=== PATIENT | female | born 1935 | race Caucasian/White ===

== ENCOUNTER 2021-07-17 12:08 | Emergency (ER) | payer OTHER ==
[~2021-07-17] VITALS: Ht 154.9 cm; Wt 75.3 kg
[2021-07-17 13:26] VITALS: BP 160/78
[2021-07-17] MEDS ORDERED: MELO7.5T9 PO (14:58)
[2021-07-17] MEDS ORDERED: ACETAMINOPHEN 500 MG TAB PO ONE (15:00)
== END 2021-07-17 15:04 | disposition home or self-care (01) ==
LOC: ER 12:08
DX: M51.36 Other intervertebral disc degeneration, lumbar region (principal); M47.816 Spondylosis without myelopathy or radiculopathy, lumbar region; M17.12 Unilateral primary osteoarthritis, left knee; I10 Essential (primary) hypertension; E78.5 Hyperlipidemia, unspecified; Z86.73 Personal history of transient ischemic attack (TIA), and cerebral infarction without residual deficits; Z90.710 Acquired absence of both cervix and uterus
CPT/HCPCS: 72131; 73562

== ENCOUNTER → 2021-09-09 | Outpatient (CLI) | payer OTHER ==
[~2021-09-09] MED LIST: MELO7.5T9 PO
== END | disposition home or self-care (01) ==
LOC: Rad HDHVI 14:56
PROVIDERS: ATTEND Internal Medicine Cardiovascular Disease
DX: I35.8 Other nonrheumatic aortic valve disorders (principal); R07.89 Other chest pain
CPT/HCPCS: 93306

== ENCOUNTER → 2021-09-17 | Outpatient (CLI) | payer OTHER ==
[~2021-09-17] VITALS: Ht 154.9 cm; Wt 77.6 kg
[~2021-09-17] MED LIST changes: +ADENOSINE 65 MG in GIVE UN-DILUTED 0 ML IV ONE; +ADENOSINE 90 MG/30 ML INJ IV ONE
== END | disposition home or self-care (01) ==
LOC: Rad HDHVI 12:59
PROVIDERS: ATTEND Internal Medicine Cardiovascular Disease
DX: I10 Essential (primary) hypertension (principal); E78.5 Hyperlipidemia, unspecified
CPT/HCPCS: 78452; 93005; 96374; 96375; A9500; J0153

== ENCOUNTER → 2022-01-25 | Outpatient (CLI) | payer OTHER ==
[~2022-01-25] MED LIST changes: -ADENOSINE 65 MG in GIVE UN-DILUTED 0 ML IV ONE; -ADENOSINE 90 MG/30 ML INJ IV ONE
[2022-01-25 16:16] LABS: Basophils # (auto) 0.1 10 ^3/uL (0-0.2); Basophils % (auto) 1.7 % (0.0-2.0); Eosinophils # (auto) 0.3 10 ^3/uL (0-0.8); Eosinophils % (auto) 5.2 % (0.0-7.0); Hematocrit 41.7 % (36.0-46.0); Hemoglobin 13.9 g/dL (12.2-16.2); Lymphocytes # (auto) 1.4 10 ^3/uL (0.4-5.4); Lymphocytes % (auto) 27.3 % (10.0-50.0); Mean Corpuscular Hemoglobin 31.4 pg (28.0-32.0); Mean Corpuscular Hgb Conc. 33.4 g/dL (32.0-36.0); Mean Corpuscular Volume 94.1 fL (80.0-100.0); Monocytes # (auto) 0.6 10 ^3/uL (0-1.3); Monocytes % (auto) 11.1 % (0.0-12.0); Neutrophils # (auto) 2.8 10 ^3/uL (1.6-8.6); Neutrophils % (auto) 54.7 % (37.0-80.0); Nucleated Red Blood Cells % 0.2 %; Red Blood Cells 4.44 10^6/uL (4.0-5.20); Red Cell Distribution Width 13.7 % (11.8-14.3); White Blood Cell 5.2 10^3/uL (4.4-10.8)
[2022-01-25 16:28] LABS: Albumin 4.1 g/dL (3.4-5.0); Calcium 9.2 mg/dL (8.5-10.1); Potassium 4.9 mmol/L (3.5-5.1)
[2022-01-25 16:32] LABS: BUN/Creatinine Ratio 17.8; Bilirubin, Total 0.6 mg/dL (0.2-1.0); Total Protein 6.9 g/dL (6.4-8.2); Urine Blood Negative /uL (Negative); Urine Specific Gravity 1.013 (1.001-1.035)
[2022-01-25 17:02] LABS: Free T4 (Free Thyroxine) 1.11 ng/dL (0.89-1.76)
== END | disposition home or self-care (01) ==
LOC: LAB 11:40
PROVIDERS: ATTEND Internal Medicine Cardiovascular Disease
DX: I10 Essential (primary) hypertension (principal)
CPT/HCPCS: 36415; 80053; 80061; 81003; 82607; 83036; 84439; 84443; 85025

== ENCOUNTER → 2022-09-06 | Outpatient (CLI) | payer OTHER ==
[~2022-09-06] VITALS: Ht 154.9 cm; Wt 76.7 kg
[~2022-09-06] MED LIST changes: +ADENOSINE 64 MG in GIVE UN-DILUTED 0 ML IV ONE; +ADENOSINE 90 MG/30 ML INJ IV ONE; +AMLO1TAB22 PO; +ATOR40TA52 PO; +HYDR12.55 PO; +LEV50T PO; +LEVO50TA7 PO; +NAP500T PO; +PREG-109 PO; +TEMA15CA PO; +TEMA15CA2 PO
== END | disposition home or self-care (01) ==
LOC: Rad HDHVI 09:20
PROVIDERS: ATTEND Internal Medicine Cardiovascular Disease
DX: I11.0 Hypertensive heart disease with heart failure (principal); I50.33 Acute on chronic diastolic (congestive) heart failure; E78.00 Pure hypercholesterolemia, unspecified
CPT/HCPCS: 78452; 93005; 96374; 96375; A9500; J0153

== ENCOUNTER → 2022-09-08 | Outpatient (CLI) | payer OTHER ==
[~2022-09-08] MED LIST changes: -ADENOSINE 64 MG in GIVE UN-DILUTED 0 ML IV ONE; -ADENOSINE 90 MG/30 ML INJ IV ONE
== END | disposition home or self-care (01) ==
LOC: Rad HDHVI 15:49
PROVIDERS: ATTEND Internal Medicine Cardiovascular Disease
DX: I10 Essential (primary) hypertension (principal)
CPT/HCPCS: 93880

== ENCOUNTER → 2023-06-06 | Outpatient (CLI) | payer OTHER ==
[~2023-06-06] MED LIST changes: -PREG-109 PO; +PREG75CA90 PO
== END | disposition home or self-care (01) ==
LOC: Rad HDHVI 11:29
PROVIDERS: ATTEND Internal Medicine Cardiovascular Disease
DX: M51.37 Other intervertebral disc degeneration, lumbosacral region (principal); M47.817 Spondylosis without myelopathy or radiculopathy, lumbosacral region; M48.061 Spinal stenosis, lumbar region without neurogenic claudication
CPT/HCPCS: 72131

== ENCOUNTER → 2023-09-28 | Outpatient (CLI) | payer OTHER ==
[~2023-09-28] MED LIST changes: -LEV50T PO; +LEVO-848 PO
== END | disposition home or self-care (01) ==
LOC: Rad HDHVI 13:23
PROVIDERS: ATTEND Internal Medicine Cardiovascular Disease
DX: I10 Essential (primary) hypertension (principal)
CPT/HCPCS: 93880

== ENCOUNTER → 2023-10-10 | Outpatient (CLI) | payer OTHER | END | disposition home or self-care (01) | LOC: Rad HDHVI 13:58 | PROVIDERS: ATTEND Internal Medicine Cardiovascular Disease | DX: I08.3 Combined rheumatic disorders of mitral, aortic and tricuspid valves (principal); I25.2 Old myocardial infarction; I50.9 Heart failure, unspecified | CPT/HCPCS: 93306 ==

== ENCOUNTER → 2024-04-11 | Outpatient (CLI) | payer OTHER ==
[~2024-04-11] MED LIST changes: +READI-CAT 2 (BARIUM SULF)(VANILLA SMOOTHIE) 450ML ONE
--- NOTE | 2024-04-11 15:58 | DVH ---
CT CT AB PEL WITH ORAL CON ONLY INDICATION: ABD PAIN EXAM DATE: 04/11/2024 12:43 PM COMPARISON: None RADIATION DOSE: CTDIvol: 6.63 mGy, DLP: 334.47 mGy*cm PROCEDURE: Helical CT images were obtained of the abdomen and pelvis without IV contrast Sagittal and coronal reconstructions are provided. ORAL CONTRAST: Yes ADDITIONAL IMAGES / REFORMATS: None All CT scans at this medical facility are performed using dose modulation techniques as appropriate to a per formed exam including the following: Automated exposure control was utilized; adjustment of the MA an d/or KV according to patient size; and use of iterative reconstruction technique. FINDINGS: LUNG BASE: Normal. 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 Additional 1.1 cm low density liver cystic lesion adjacent to the gallbladder is incompletely characterized wit hout IV contrast. GALLBLADDER AND BILIARY TREE: No calcified gallstones. Normal caliber wall. No intra- or extrahepatic biliary ductal dilation. PANCREAS: Normal. SPLEEN: Normal. BOWEL: Moderate colonic diverticulosis. Oral contrast material seen in nondilated small kandace. ADRENALS: Normal. KIDNEYS AND URETER: Small subcentimeter left kidney cystic lesion. Mild bilateral perinephric fat str anding, nonspecific. BLADDER: Normal. REPRODUCTIVE ORGANS: Normal. LYMPH NODES:No lymphadenopathy. PERITONEUM: No ascites or free air. No other fluid collection. VESSELS: Scattered atherosclerotic calcifications are noted. RETROPERITONEUM: Normal. ABDOMINAL WALL: Normal. BONES: Scattered osseous degenerative changes are noted. IMPRESSION: No acute intraabdominal abnormality. No small bowel dilation. 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 Additional 1.1 cm low density liver cystic lesion adjacent to the gallbladder is incompletely characterized without IV contrast. Moderate colonic diverticulosis.
== END | disposition home or self-care (01) ==
LOC: Rad HDHVI 11:41
PROVIDERS: ATTEND Internal Medicine Cardiovascular Disease
DX: K57.30 Diverticulosis of large intestine without perforation or abscess without bleeding (principal); N28.1 Cyst of kidney, acquired; K76.9 Liver disease, unspecified; I70.8 Atherosclerosis of other arteries; M47.816 Spondylosis without myelopathy or radiculopathy, lumbar region; R10.9 Unspecified abdominal pain
CPT/HCPCS: 74176

== ENCOUNTER → 2024-08-15 | Outpatient (CLI) | payer OTHER ==
[~2024-08-15] MED LIST changes: -READI-CAT 2 (BARIUM SULF)(VANILLA SMOOTHIE) 450ML ONE
== END | disposition home or self-care (01) ==
LOC: Rad HDHVI 16:34
PROVIDERS: ATTEND Internal Medicine Cardiovascular Disease
DX: R42 Dizziness and giddiness (principal)
CPT/HCPCS: 93880

== ENCOUNTER 2024-11-17 14:50 | Emergency (ER) | payer OTHER ==
[~2024-11-17] VITALS: Ht 154.9 cm; Wt 68.2 kg
[2024-11-17] MEDS: HYDROcodone-ACET 5/325MG TAB PO ONE (16:45)
--- NOTE | 2024-11-17 17:19 | DVH ---
CLINICAL INDICATION: Trauma/twist TECHNIQUE: 3 radiographic views of the left foot were obtained. Comparison: None FINDINGS/IMPRESSION: Medial osteotomy distal aspect 1st metatarsal with [address] No prior studies for comparison. Arthritic changes are noted of the tarsal metatarsal joint of the 2nd 3rd 4th and 5th toes.
--- NOTE | 2024-11-17 17:20 | DVH ---
CLINICAL INDICATION: Trauma/twist TECHNIQUE: 4 radiographic views of the left ankle were obtained. Comparison: None FINDINGS/IMPRESSION: Soft tissue swelling is noted around the left ankle. Not appear to be any fractures of the distal tibia or fibula. Small plantar calcaneal enthesophyte is seen.
[2024-11-17] MEDS ORDERED: HYDR-4902 PO (17:38)
--- NOTE | 2024-11-17 17:39 | ED.PDOC ---
Musculoskeletal HPI Comments This is a [facility] ED 9-year-old female who arrives to the ED today with a walker due to complaints of left ankle and left foot pain concerns status post ground level fall two days ago. Patient states she was working in her backyard and walking over some j[employer]inta establishment when she twisted her ankle and fell. Patient is utilizing a walker, but can not bear some weight on the ankle and foot. Patient has a history of pin placement in the foot due to a prior injury. Patient denies any head trauma or blood loss. Chief Complaint: Fall Injury Time Seen by MD: 16:02 Primary Care Provider: MIKE Reviewed Notes: Nurses Notes Allergies: Coded Allergies: Sulfa Antibiotics (Verified Allergy, Unknown, 08/30/22) Home Meds Active Scripts Meloxicam (Mobic) 7.5 Mg Tab, 7.5 MG PO BID, #30 TAB Prov:DESIREE PICKETT 07/17/21 Reported Medications Naproxen (NAPROSYN TABLET) 500 Mg Tb, 1 TAB PO BID 08/31/22 Atorvastatin Calcium (ATORVASTATIN CALCIUM) 40 Mg Tab, 1 TAB PO DAILY 08/31/22 Temazepam (Restoril) 15 Mg Cp, 1 CAP PO QHSP PRN for ANXIETY 08/31/22 Levothyroxine Sodium (Levothyroxine Sodium) 50 Mcg Tab, 1 TAB PO DAILY 08/31/22 Pregabalin (Pregabalin) 75 Mg Cap, 1 CAP PO BID 08/31/22 Hydrochlorothiazide (Hydrochlorothiazide) 12.5 Mg Tab, 1 TAB PO DAILY 08/31/22 Amlodipine Besylate (Amlodipine Besylate) 5 Mg Tab, 1 TAB PO DAILY 08/31/22 Temazepam (Temazepam) 15 Mg Cap, 1 CAP PO QHSP PRN for ANXIETY 08/31/22 Levothyroxine Sodium (SYNTHROID TABLET) 50 Mcg Tb, 1 TAB PO DAILY 08/31/22 Information Source: Patient, Spouse Mode of Arrival: Ambulatory Location: Left Extremity Location: Ankle, Foot Timing: Days Prehospital treatment: None Severity: Moderate Able to Move Extremity: Yes Bear Weight: Limited Pain: Moderate Hand Dominance: Right Mechanism: Twisting Circumstances: Fall Onset of Symptoms: After Trauma Symptoms: Swelling, Pain DVT Risk Factors: NONE Past Medical History PAST MEDICAL HISTORY: Arthritis, High Lipids, HTN, TIA Surgical History: Hysterectomy Surgical History (Other): Pin placement in the metatarsals of the left foot PROBATE PARALEGAL History: No Pertinent PROBATE PARALEGAL History Family History Family History: Reviewed,noncontributory to illness Social History Smoker: Non-Smoker Alcohol: Denies ETOH Use Drugs: Denies Drug Use Lives In: Home Constitutional: denies: chills, diaphoresis, fatigue, fever, malaise, sweats, weakness, others EENTM: denies: blurred vision, double vision, ear bleeding, ear discharge, ear drainage, ear pain, ear ringing, eye pain, eye redness, hearing loss, mouth pain, mouth swelling, nasal discharge, nose bleeding, nose congestion, nose pain, photophobia, tearing, throat pain, throat swelling, voice changes, others Respiratory: denies: cough, hemoptysis, orthopnea, SOB at rest, shortness of breath, SOB with excertion, stridor, wheezing, others Cardiovascular: denies: chest pain, dizzy spells, diaphoresis, Dyspnea on exertion, edema, irregular heart beat, left arm pain, lightheadedness, palpitations, PND, syncope, others Gastrointestinal: denies: abdomen distended, abdominal pain, blood streaked bowels, constipated, diarrhea, dysphagia, difficulty swallowing, hematemesis, melena, nausea, poor appetite, poor fluid intake, rectal bleeding, rectal pain, vomiting, others Genitourinary: denies: abnormal vagina bleeding, burning, dyspareunia, dysuria, flank pain, frequency, hematuria, incontinence, pain, , vagina discharge, urgency, others Neurological: denies: dizziness, fainting, headache, left sided numbness, left sided weakness, numbness, paresthesia, pre-existing deficit, right sided numbness, right sided weakness, seizure, speech problems, tingling, tremors, weakness, others Musculoskeletal: reports: others (Left foot and left ankle pain); denies: back pain, gout, joint pain, joint swelling, muscle pain, muscle stiffness, neck pain Integumetry: denies: bruises, change in color, change in hair/nails, dryness, laceration, lesions, lumps, rash, wounds, others Allergic/Immunocompromised: denies: Difficulty Healing, Frequent Infections, Hives, Itching, others Hematologic/Lymphatic: denies: anemia, blood clots, easy bleeding, easy bruising, swollen glands, others Endocrine: denies: excessive hunger, excessive sweating, excessive thirst, excessive urination, flushing, intolerance to cold, intolerance to heat, unexplained weight gain, unexplained weight loss, others Psychiatric: denies: anxiety, bipolar disorder, depression, hopeless, panic disorder, schizophrenia, sleepless, suicidal, others Physical Exam General Appearance: Moderate Distress (Due to foot and ankle pain concerns.), Normal HEENT: Normal ENT Inspection, Pharynx Normal, TMs Normal Neck: Full Range of Motion, Non-Tender, Normal, Normal Inspection Respiratory: Chest Non-Tender, Lungs Clear, No Accessory Muscle Use, No Respiratory Distress, Normal Breath Sounds Cardiovascular: No Edema, No JVD, No Murmur, No Gallop, Normal Peripheral Pulses, Regular Rate/Rhythm Breast Exam: Deferred Gastrointestinal: No Organomegaly, Non Tender, No Pulsatile Mass, Normal Bowel Sounds, Soft Genitalia: Deferred Pelvic: Deferred Rectal: Deferred Extremities: Other (Left ankle and left foot are diffusely tender to palpation throughout with mild edema extending into the dorsal aspect of the foot and lateral malleolus. Moderate reduced range of motion. No crepitus appreciated.) Neurologic: Alert Cerebellar Function: NOT DONE Reflexes: NOT DONE Skin: Dry, Normal Color, Warm Lymphatic: No Adenopathy Was a procedure done? Was a procedure done?: No Differential Diagnosis EXT Differential Diagnosis: Other (Ankle fracture, ankle sprain, foot fracture, foot sprain) X-Ray, Labs, Meds, VS Vital Signs Date Time Temp Pulse Resp B/P (MAP) Pulse Ox O2 Delivery O2 Flow Rate FiO2 11/17/24 14:52 97.4 85 18 169/67 95 97.4 Current Medications Medications (Trade) Dose Ordered Sig/Zuleima Route Start Time Stop Time Status Last Admin Acetaminophen/ Hydrocodone Bitart ([place] 5/325MG Tab) 1 tab ONCE ONCE PO 11/17/24 16:15 11/17/24 16:16 DC 11/17/24 16:45 X-Ray, Labs, Meds, VS Comment All studies performed the ED were evaluated by me personally. Imaging studies of the ankle and foot were unremarkable for any acute fractures. Pin placement was noted without disturbance. Patient sustained a sprain and contusion. Doug wrap was provided for the patient at discharge. Advised pain medication as needed as well as ice therapy. Time of 1ST Reevaluation: 17:36 Reevaluation 1ST: Improved Consultation: PCP Patient Education/Counseling: Diagnosis, Treatment Family Education/Counseling: Diagnosis, Treatment Sepsis Recent Procedure: No On Antibiotic Therapy: No Respiratory Rate >20: No Heart Rate >90: No Temp<36 C (96.8 F) or >38.3 C: No SBP <90 or MAP <65 mmHG: No New Acute Mental Status Change: No Is the patient on CPAP, BIPAP,: No IV fluid given: No Departure 1 Departure Time of Disposition: 17:37 Impression: Primary Impression: Ankle sprain Additional Impression: Foot contusion Disposition: HOME / SELF CARE / HOMELESS Condition: Stable Additional Instructions: Advised pain medication as needed as well as ice therapy. Patient should utilize her walker as long as it aid in the healing process. e-Prescriptions Hydrocodone-Acetaminophen (Hydrocodone Bitartrate/AC 5-325 mg) 1 Tab Tab 1 TAB PO Q6HP PRN, #15 TAB Prov: JAQUELINE MILES PAC 11/17/24 Discharged With: Self, Spouse Critical Care Note Critical Care Time?: No Stability Stability form required: No Heart Score Heart Score: Heart Score Response (Comments) Value History N/A 0 EKG N/A 0 Age N/A 0 Risk Factors N/A 0 Troponin N/A 0 Total 0 JAQUELINE MILES PAC Nov 17, 2024 17:39
[2024-11-17 18:02] VITALS: BP 138/99; PULSE 71; RESP 18; TEMP 98; O2SAT 98
== END 2024-11-17 18:09 | disposition home or self-care (01) ==
LOC: ER 14:53
DX: S93.409A Sprain of unspecified ligament of unspecified ankle, initial encounter (principal); S90.32XA Contusion of left foot, initial encounter; M19.072 Primary osteoarthritis, left ankle and foot; Z79.899 Other long term (current) drug therapy; Z86.73 Personal history of transient ischemic attack (TIA), and cerebral infarction without residual deficits; Z88.2 Allergy status to sulfonamides; Z90.710 Acquired absence of both cervix and uterus; W01.0XXA Fall on same level from slipping, tripping and stumbling without subsequent striking against object, initial encounter; Y93.89 Activity, other specified; Y92.89 Other specified places as the place of occurrence of the external cause; Y99.8 Other external cause status
CPT/HCPCS: 73610; 73630

== ENCOUNTER 2024-11-20 22:58 | Emergency (ER) | payer OTHER ==
[~2024-11-20] VITALS: Ht 154.9 cm; Wt 68.6 kg
--- NOTE | 2024-11-21 00:57 | DVH ---
INDICATION: fall TECHNIQUE: 2 views of the lumbar spine were obtained. COMPARISON: CT abdomen/pelvis 04/11/2024 FINDINGS: No evidence of acute fracture or compression deformity. Similar levo scoliotic curvature with apex a t L2-L3. Moderate multilevel spondylosis. Similar mild L4-L5 listhesis. No acute finding of the imaged abdominopelvic structures. Dense atherosclerosis. IMPRESSION: 1. No acute abnormality of the lumbar spine.
--- NOTE | 2024-11-21 01:43 | ED.PDOC ---
Back pain HPI HPI Comments 89-year-old female brought in by . Last week patient had a fall at home causing contusion to her back. She was prescribed [place]. She saw her primary care doctor earlier today. While she was at home helping with dinner she twisted causing intense shooting pain in her left-sided lower back. Patient was able to ambulate. Denies any loss of bladder or bowel control. She states she only took one [place] earlier in the day. She has not taken a 2nd one after having the back spasm. Chief Complaint: Back Pain Time Seen by MD: 23:46 Primary Care Provider: MIKE Reviewed Notes: Nurses Notes Allergies: Coded Allergies: Sulfa Antibiotics (Verified Allergy, Unknown, 08/30/22) Home Meds Active Scripts Hydrocodone-Acetaminophen (Hydrocodone Bitartrate/AC 5-325 mg) 1 Tab Tab, 1 TAB PO Q6HP PRN, #15 TAB Prov:JAQUELINE MILES PAC 11/17/24 Meloxicam (Mobic) 7.5 Mg Tab, 7.5 MG PO BID, #30 TAB Prov:DESIREE PICKETT PA 07/17/21 Reported Medications Naproxen (NAPROSYN TABLET) 500 Mg Tb, 1 TAB PO BID 08/31/22 Atorvastatin Calcium (ATORVASTATIN CALCIUM) 40 Mg Tab, 1 TAB PO DAILY 08/31/22 Temazepam (Restoril) 15 Mg Cp, 1 CAP PO QHSP PRN for ANXIETY 08/31/22 Levothyroxine Sodium (Levothyroxine Sodium) 50 Mcg Tab, 1 TAB PO DAILY 08/31/22 Pregabalin (Pregabalin) 75 Mg Cap, 1 CAP PO BID 08/31/22 Hydrochlorothiazide (Hydrochlorothiazide) 12.5 Mg Tab, 1 TAB PO DAILY 08/31/22 Amlodipine Besylate (Amlodipine Besylate) 5 Mg Tab, 1 TAB PO DAILY 08/31/22 Temazepam (Temazepam) 15 Mg Cap, 1 CAP PO QHSP PRN for ANXIETY 08/31/22 Levothyroxine Sodium (SYNTHROID TABLET) 50 Mcg Tb, 1 TAB PO DAILY 08/31/22 Information Source: Patient Mode of Arrival: EMS Past Medical History PAST MEDICAL HISTORY: Arthritis, High Lipids, HTN, TIA Surgical History: Hysterectomy PROPULSION MOTOR AND GENERATOR REPAIRER History: No Pertinent PROPULSION MOTOR AND GENERATOR REPAIRER History Family History Family History: Reviewed,noncontributory to illness Social History Smoker: Non-Smoker Alcohol: Denies ETOH Use Drugs: Denies Drug Use Lives In: Home Constitutional: denies: chills, diaphoresis, fatigue, fever, malaise, sweats, weakness, others EENTM: denies: blurred vision, double vision, ear bleeding, ear discharge, ear drainage, ear pain, ear ringing, eye pain, eye redness, hearing loss, mouth pain, mouth swelling, nasal discharge, nose bleeding, nose congestion, nose pain, photophobia, tearing, throat pain, throat swelling, voice changes, others Respiratory: denies: cough, hemoptysis, orthopnea, SOB at rest, shortness of breath, SOB with excertion, stridor, wheezing, others Cardiovascular: denies: chest pain, dizzy spells, diaphoresis, Dyspnea on exertion, edema, irregular heart beat, left arm pain, lightheadedness, palpitations, PND, syncope, others Gastrointestinal: denies: abdomen distended, abdominal pain, blood streaked bowels, constipated, diarrhea, dysphagia, difficulty swallowing, hematemesis, melena, nausea, poor appetite, poor fluid intake, rectal bleeding, rectal pain, vomiting, others Genitourinary: denies: abnormal vagina bleeding, burning, dyspareunia, dysuria, flank pain, frequency, hematuria, incontinence, pain, , vagina discharge, urgency, others Neurological: denies: dizziness, fainting, headache, left sided numbness, left sided weakness, numbness, paresthesia, pre-existing deficit, right sided numbness, right sided weakness, seizure, speech problems, tingling, tremors, weakness, others Musculoskeletal: reports: back pain; denies: gout, joint pain, joint swelling, muscle pain, muscle stiffness, neck pain, others Integumetry: denies: bruises, change in color, change in hair/nails, dryness, laceration, lesions, lumps, rash, wounds, others Allergic/Immunocompromised: denies: Difficulty Healing, Frequent Infections, Hives, Itching, others Physical Exam General Appearance: No Apparent Distress, Normal HEENT: Normal ENT Inspection, Pharynx Normal, TMs Normal Neck: Full Range of Motion, Non-Tender, Normal, Normal Inspection Respiratory: Chest Non-Tender, Lungs Clear, No Accessory Muscle Use, No Respiratory Distress, Normal Breath Sounds Cardiovascular: No Edema, No JVD, No Murmur, No Gallop, Normal Peripheral Pulses, Regular Rate/Rhythm Breast Exam: Deferred Gastrointestinal: No Organomegaly, Non Tender, No Pulsatile Mass, Normal Bowel Sounds, Soft Genitalia: Deferred Pelvic: Deferred Rectal: Deferred Extremities: No calf tenderness, Normal capillary refill, Normal inspection, Normal range of motion, Non-tender, No pedal edema Musculoskeletal : Location: Left Extremity Location: Back (Tender to palpation over the lumbar paraspinous muscles.) Apperance: Normal Neurologic: Alert, occupational health nursing director II-XII nml as Tested, No Motor Deficits, Normal Affect, Normal Mood, No Sensory Deficits Cerebellar Function: Normal Reflexes: Normal Skin: Dry, Normal Color, Warm Lymphatic: No Adenopathy Was a procedure done? Was a procedure done?: No Back Pain Differential Dx Differential Diagnosis: Fracture, Musculoskeletal Pain X-Ray, Labs, Meds, VS Vital Signs Date Time Temp Pulse Resp B/P (MAP) Pulse Ox O2 Delivery O2 Flow Rate FiO2 11/20/24 23:09 97.9 70 18 154/111 98 97.9 11/20/24 23:00 64 X-Ray, Labs, Meds, VS Comment Imaging was reviewed by this provider, there is no obvious pathological or acute disease process. Pending radiology review Labs were reviewed by this provider, no abnormalities Vital signs reviewed by this provider, clinically stable Time of 1ST Reevaluation: 01:47 Reevaluation 1ST: Unchanged Patient Education/Counseling: Diagnosis, Treatment, Need For Follow Up (Follow up with PCP tomorrow turned to the emergency department if symptoms worsen) Family Education/Counseling: Diagnosis SEPSIS Sepsis Screen Date sepsis recognized/suspect: Nov 20, 2024 Time Sepsis recognized/suspect: 2311 Recent Procedure: No On Antibiotic Therapy: No Respiratory Rate >20: No Heart Rate >90: No Temp<36 C (96.8 F) or >38.3 C: No SBP <90 or MAP <65 mmHG: No New Acute Mental Status Change: No Is the patient on CPAP, BIPAP,: No Physician Orders Electrocardigram (11/20/24 23:46) Lumbar Spine 3 View (11/21/24 00:10) Vital Signs Date Time Temp Pulse Resp B/P (MAP) Pulse Ox O2 Delivery O2 Flow Rate FiO2 10/7/25 23:09 97.9 70 18 154/111 98 97.9 11/20/24 23:00 64 Departure 1 Departure Time of Disposition: 01:47 Impression: Primary Impression: Generalized weakness Additional Impression: Status post fall Disposition: 01 HOME / SELF CARE / HOMELESS Condition: Fair Discharged With: Self Critical Care Note Critical Care Time?: No Stability Stability form required: No Heart Score Heart Score: Heart Score Response (Comments) Value History N/A 0 EKG N/A 0 Age N/A 0 Risk Factors N/A 0 Troponin N/A 0 Total 0 BRODY TONGP Nov 21, 2024 01:43
[2024-11-21] MEDS: HYDROcodone-ACET 5/325MG TAB PO ONE (02:07)
[2024-11-21 02:15] VITALS: BP 124/73; PULSE 70; RESP 17; TEMP 98.7; O2SAT 98
--- NOTE | 2024-11-21 03:56 | ECG ---
[facility] Test Date: 2024-11-20 Test Time: 23:00:14 Pat Name: JIMMY SOLIS Department: [facility] ED Patient ID: [id number] Room: Gender: F Photographic Restorer: FENG : 1935 Requested By: BRODY TONG Order Number: [id number] Reading MD: Yehuda Arrieta Measurements Intervals [place] Rate: 64 P: 100 CO: 254 QRS: -10 QRSD: 96 T: -14 QT: 477 QTc: 493 Interpretive Statements Sinus rhythm Prolonged CO interval Low voltage, precordial leads Nonspecific T abnormalities, inferior leads Borderline prolonged QT interval Electronically Signed On 11-24-2024 20:30:00 PDT by Yehuda Arrieta Please click the below link to view image of tracing.
== END 2024-11-21 03:48 | disposition home or self-care (01) ==
LOC: EDBD 22:58 → ER 22:58
DX: R53.1 Weakness (principal); M19.90 Unspecified osteoarthritis, unspecified site; E78.5 Hyperlipidemia, unspecified; I10 Essential (primary) hypertension; Z90.710 Acquired absence of both cervix and uterus; Z86.73 Personal history of transient ischemic attack (TIA), and cerebral infarction without residual deficits; Z88.2 Allergy status to sulfonamides; Z79.899 Other long term (current) drug therapy; W19.XXXA Unspecified fall, initial encounter; Y93.89 Activity, other specified; Y92.009 Unspecified place in unspecified non-institutional (private) residence as the place of occurrence of the external cause; Y99.8 Other external cause status
CPT/HCPCS: 72100; 93005

== ENCOUNTER → 2024-11-20 | Outpatient (CLI) | payer OTHER ==
[~2024-11-20] MED LIST changes: +HYDR-4902 PO
[2024-11-20 12:15] VITALS: BP 166/70; PULSE 79; RESP 16; O2SAT 96
[2024-11-20 12:50] VITALS: BP 158/63; PULSE 68; RESP 16; O2SAT 96
== END | disposition home or self-care (01) ==
LOC: CHF HDHVI 12:24
PROVIDERS: ATTEND Internal Medicine Cardiovascular Disease
DX: R60.0 Localized edema (principal)
CPT/HCPCS: G0463

== ENCOUNTER 2024-11-26 14:53 | Outpatient (CLI) | payer OTHER ==
[2024-11-26 15:00] VITALS: BP 153/56; PULSE 75; RESP 16; O2SAT 96
[2024-11-26] MEDS: BACITRACIN TOP OINT 1 UD PKG TOP ONE ×2 (15:00→15:16)
== END 2024-11-26 17:00 | disposition home or self-care (01) ==
LOC: CHF HDHVI 14:53
PROVIDERS: ATTEND Internal Medicine Cardiovascular Disease
DX: S81.802A Unspecified open wound, left lower leg, initial encounter (principal); X58.XXXA Exposure to other specified factors, initial encounter; Y93.89 Activity, other specified; Y92.89 Other specified places as the place of occurrence of the external cause; Y99.8 Other external cause status
CPT/HCPCS: G0463

== ENCOUNTER 2024-12-17 15:41 | Outpatient (CLI) | payer OTHER ==
[2024-12-17 15:20] VITALS: BP 142/70; PULSE 78; O2SAT 98
== END 2024-12-17 17:00 | disposition home or self-care (01) ==
LOC: CHF HDHVI 15:41
PROVIDERS: ATTEND Internal Medicine Cardiovascular Disease
DX: Z01.818 Encounter for other preprocedural examination (principal); L97.329 Non-pressure chronic ulcer of left ankle with unspecified severity
CPT/HCPCS: G0463

== ENCOUNTER 2025-01-23 14:12 | Emergency (ER) | payer OTHER ==
[~2025-01-23] VITALS: Ht 154.9 cm; Wt 78.0 kg
--- NOTE | 2025-01-23 14:48 | ED.PDOC ---
HPI Comments A 89 YEAR OLD FEMALE TAVARES PRESENTS TO THE ED WITH COMPLAINT OF LACERATION OF LIP S/P FALL. PATIENT REPORTS THAT SHE DOES NOT EXACTLY REMEMBER HOW SHE FELL, BUT SHE FELL FORWARD, LACERATING HER UPPER LIP. PATIENT RELAYS THAT THE BLEEDING IS NOW CONTROLLED, BUT HER LIP IS PAINFUL. STATES PATIENT HAD TRIPPED OVER A PIECE OF MISSING TILE AND FELL ONTO TILE JOSE OF AN ALLSTATE BUILDING THEY WERE AT, FALLING FACE FIRST. PATIENT DENIES FEVER, CHILLS, SHORTNESS OF BREATH, CHEST PAIN, ABDOMINAL PAIN, NAUSEA, VOMITING, HEADACHE, OR OTHER COMPLAINTS. NO OTHER SYMPTOMS OR MODIFYING FACTORS AT THIS TIME. PATIENT IS ALERT, ORIENTED X 4, AND HAS STEADY GAIT. Chief Complaint: Laceration Time Seen by MD: 14:37 Primary Care Provider: MIKE Reviewed Notes: Nurses Notes, Medications, Allergies Allergies: Coded Allergies: Sulfa Antibiotics (Verified Allergy, Unknown, 08/30/22) Home Meds Active Scripts Cephalexin Monohydrate (Cephalexin) 500 Mg Cap, 1 CAP PO TID, #30 CAP Prov:DESIREE PICKETT 01/23/25 Hydrocodone-Acetaminophen (Hydrocodone Bitartrate/AC 5-325 mg) 1 Tab Tab, 1 TAB PO Q6HP PRN, #15 TAB Prov:JAQUELINE MILES 11/17/24 Meloxicam (Mobic) 7.5 Mg Tab, 7.5 MG PO BID, #30 TAB Prov:DESIREE PICKETT 07/17/21 Reported Medications Naproxen (NAPROSYN TABLET) 500 Mg Tb, 1 TAB PO BID 08/31/22 Atorvastatin Calcium (ATORVASTATIN CALCIUM) 40 Mg Tab, 1 TAB PO DAILY 08/31/22 Temazepam (Restoril) 15 Mg Cp, 1 CAP PO QHSP PRN for ANXIETY 08/31/22 Levothyroxine Sodium (Levothyroxine Sodium) 50 Mcg Tab, 1 TAB PO DAILY 08/31/22 Pregabalin (Pregabalin) 75 Mg Cap, 1 CAP PO BID 08/31/22 Hydrochlorothiazide (Hydrochlorothiazide) 12.5 Mg Tab, 1 TAB PO DAILY 08/31/22 Amlodipine Besylate (Amlodipine Besylate) 5 Mg Tab, 1 TAB PO DAILY 08/31/22 Temazepam (Temazepam) 15 Mg Cap, 1 CAP PO QHSP PRN for ANXIETY 08/31/22 Levothyroxine Sodium (SYNTHROID TABLET) 50 Mcg Tb, 1 TAB PO DAILY 08/31/22 Information Source: Patient, Emergency Med Personnel Mode of Arrival: EMS Severity: Moderate Severity of Laceration: Controlled Bleeding Complexity: Simple Timing: Hours Prehospital treatment: None Laceration Location: Lip Mechanism: Fall Last Tetanus: UTD Laceration Length (cm): 2 Skin Type: Linear Depth of Injury: SQ Tendon Injury: 0% Capillary Refill: < 3 seconds Tender: Moderate Discharge: Serosanguinous Erythema: Localized to Wound Edges Associated Signs and Symptoms: None Past Medical History PAST MEDICAL HISTORY: Arthritis, High Lipids, HTN, TIA Surgical History: Hysterectomy BRAZER ELECTRONIC History: No Pertinent BRAZER ELECTRONIC History Family History Family History: Reviewed,noncontributory to illness Social History Smoker: Non-Smoker Alcohol: Denies ETOH Use Drugs: Denies Drug Use Lives In: Home Constitutional: denies: chills, diaphoresis, fatigue, fever, malaise, sweats, weakness, others EENTM: reports: others (UPPER LIP LACERATION ); denies: blurred vision, double vision, ear bleeding, ear discharge, ear drainage, ear pain, ear ringing, eye pain, eye redness, hearing loss, mouth pain, mouth swelling, nasal discharge, nose bleeding, nose congestion, nose pain, photophobia, tearing, throat pain, throat swelling, voice changes Respiratory: denies: cough, hemoptysis, orthopnea, SOB at rest, shortness of breath, SOB with excertion, stridor, wheezing, others Cardiovascular: denies: chest pain, dizzy spells, diaphoresis, Dyspnea on exertion, edema, irregular heart beat, left arm pain, lightheadedness, palpitations, PND, syncope, others Gastrointestinal: denies: abdomen distended, abdominal pain, blood streaked bowels, constipated, diarrhea, dysphagia, difficulty swallowing, hematemesis, melena, nausea, poor appetite, poor fluid intake, rectal bleeding, rectal pain, vomiting, others Genitourinary: denies: abnormal vagina bleeding, burning, dyspareunia, dysuria, flank pain, frequency, hematuria, incontinence, pain, , vagina discharge, urgency, others Neurological: denies: dizziness, fainting, headache, left sided numbness, left sided weakness, numbness, paresthesia, pre-existing deficit, right sided numbness, right sided weakness, seizure, speech problems, tingling, tremors, weakness, others Musculoskeletal: denies: back pain, gout, joint pain, joint swelling, muscle pain, muscle stiffness, neck pain, others Integumetry: reports: laceration (UPPER LIP); denies: bruises, change in color, change in hair/nails, dryness, lesions, lumps, rash, wounds, others Allergic/Immunocompromised: denies: Difficulty Healing, Frequent Infections, Hives, Itching, others Hematologic/Lymphatic: denies: anemia, blood clots, easy bleeding, easy bruising, swollen glands, others Endocrine: denies: excessive hunger, excessive sweating, excessive thirst, excessive urination, flushing, intolerance to cold, intolerance to heat, unexplained weight gain, unexplained weight loss, others Psychiatric: denies: anxiety, bipolar disorder, depression, hopeless, panic disorder, schizophrenia, sleepless, suicidal, others All Other Systems: Reviewed and Negative Physical Exam General Appearance: No Apparent Distress, Normal HEENT: Normal ENT Inspection, PERRL/EOMI, Pharynx Normal, TMs Normal, Other (UPPER LIP LACERATION ON UPPER LIP INSIDE AND OUTSIEE, NO DENTAL INJURY. ) Neck: Full Range of Motion, Non-Tender, Normal, Normal Inspection Respiratory: Chest Non-Tender, Lungs Clear, No Accessory Muscle Use, No Respiratory Distress, Normal Breath Sounds Cardiovascular: No Edema, No JVD, No Murmur, No Gallop, Normal Peripheral Pulses, Regular Rate/Rhythm Breast Exam: Deferred Gastrointestinal: No Organomegaly, Non Tender, No Pulsatile Mass, Normal Bowel Sounds, Soft Genitalia: Deferred Pelvic: Deferred Rectal: Deferred Extremities: No calf tenderness, Normal capillary refill, Normal inspection, Normal range of motion, Non-tender, No pedal edema Musculoskeletal : Apperance: Normal Neurologic: Alert, meter reading clerk II-XII nml as Tested, No Motor Deficits, Normal Affect, Normal Mood, No Sensory Deficits Cerebellar Function: Normal Reflexes: Normal Skin: Dry, Lacerations (2.5CM UPPER LIP LACERATION, NO BLEEDING AND FB. 2.5CM LACERATION INSIDE UPPER LIP. ), Normal Color, Warm Peripheral Pulses: 2+ carotid (R), 2+ carotid (L) Lymphatic: No Adenopathy Was a procedure done? Was a procedure done?: Yes Sedation Sedation?: No Laceration Repair : Location UPPER LIP Length 2.5CM OUTSIDE LIP, 2.5CM INSIDE LIP Anesthetic: Lidocaine, Without epi Laceration Repair Prep: Saline Laceration Repair Wound Comple: subcut tissue repair Laceration Repair: Number of sutures (6, 4-0 ETHILON SUTURES AND 4-0 VICRYL RUNNING SUTURES PLACED INSIDE LIP), SQ, Size (5-0), Nylon, Vicryl, Simple, Gauze Informed consent obtained: No Risks, benefits, and alternati: Yes Images 1 - Differential diagnosis Generic Laceration: Laceration, Avulsion X-Ray, Labs, Meds, VS Vital Signs Date Time Temp Pulse Resp B/P (MAP) Pulse Ox O2 Delivery O2 Flow Rate FiO2 01/23/25 15:07 98.0 73 14 168/88 (114) 96 98.0 X-Ray, Labs, Meds, VS Comment EXTERNAL MEDICAL RECORDS REVIEWED: [NONE] INDEPENDENT HISTORIANS: SOCIAL DETERMINANTS OF HEALTH: [NONE] LABS ORDERED: NONE REVIEWED AND INTERPRETED RESULTS: NONE IMAGING ORDERED: NONE TREATMENTS ORDERED: NONE PROCEDURES PERFORMED: LACERATION REPAIR OF UPPER LIP. CRITICAL CARE TIME: NONE I HAVE DISCUSSED THE PATIENT WITH THE ATTENDING PHYSICIAN DR. CONNELLY AND HE AGREES WITH THE PATIENT'S PLAN OF CARE AND DISPOSITION. BASED ON HISTORY OF PRESENT ILLNESS, AND PHYSICAL EXAM, PATIENT WILL BE DISCHARGED HOME. DISCUSSED PLAN FOR DISCHARGE HOME WITH RX [facility]. MEDICATION WARNINGS GIVEN. SHARED DECISION MAKING: DISCUSSED WITH PATIENT THAT THEIR WORKUP WAS NORMAL. PATIENT INSTRUCTED TO FOLLOW UP WITH PRIMARY CARE PROVIDER IN 1-2 DAYS FOR RE- EVALUATION OF SYMPTOMS. PATIENT VERBALIZES UNDERSTANDING TO RETURN TO ED FOR NEW OR WORSENING SYMPTOMS OR IF FOLLOW UP WITH PCP CANNOT BE OBTAINED. PATIENT FEELS COMFORTABLE GOING HOME AT THIS TIME. ALL QUESTIONS ADDRESSED AT TIME OF DISCHARGE. Time of 1ST Reevaluation: 15:18 Reevaluation 1ST: Improved Patient Education/Counseling: Diagnosis, Treatment, Need For Follow Up Family Education/Counseling: Diagnosis, Treatment, Need For Follow Up, No Family Present Medical Screening: No EMC Exist At This Time Departure 1 Departure Time of Disposition: 15:18 Impression: Primary Impression: Laceration of upper lip Additional Impression: Status post fall Disposition: 01 HOME / SELF CARE / HOMELESS Condition: Stable Additional Instructions: FOLLOW-UP WITH PCP IN 1 TO 2 DAYS. TAKE MEDICATIONS PRESCRIBED. RETURN TO ED FOR ANY NEW OR WORSENING SYMPTOMS. e-Prescriptions Cephalexin Monohydrate (Cephalexin) 500 Mg Cap 1 CAP PO TID, #30 CAP Prov: DESIREE PICKETT 01/23/25 Discharged With: Self, Spouse Critical Care Note Critical Care Time?: No Stability Stability form required: No Heart Score Heart Score: Heart Score Response (Comments) Value History N/A 0 EKG N/A 0 Age N/A 0 Risk Factors N/A 0 Troponin N/A 0 Total 0 I personally scribed for DESIREE PICKETT ([email or web address]) on 01/23/25 at 14:48. Electronically submitted by Jeremiah Mccormack ([email or web address]). I personally scribed for DESIREE PICKETT ([email or web address]) on 01/23/25 at 15:01. Electronically submitted by Jeremiah Mccormack ([email or web address]). I personally scribed for DESIREE PICKETT ([email or web address]) on 01/23/25 at 15:03. Electronically submitted by Jeremiah Mccormack ([email or web address]). DESIREE PICKETT Jan 23, 2025 14:48
[2025-01-23] MEDS ORDERED: CEPH500C PO (14:50)
[2025-01-23 17:16] VITALS: BP 110/80; PULSE 80; RESP 18; TEMP 98.5; O2SAT 98
== END 2025-01-23 15:16 | disposition home or self-care (01) ==
LOC: EDUNIT# 14:12 → ER 14:12 → EDBD 14:12 → ER 15:12
DX: S01.511A Laceration without foreign body of lip, initial encounter (principal); Z88.2 Allergy status to sulfonamides; Z90.710 Acquired absence of both cervix and uterus; Z86.73 Personal history of transient ischemic attack (TIA), and cerebral infarction without residual deficits; Z79.899 Other long term (current) drug therapy; I10 Essential (primary) hypertension; W19.XXXA Unspecified fall, initial encounter; Y93.89 Activity, other specified; Y92.89 Other specified places as the place of occurrence of the external cause; Y99.8 Other external cause status
CPT/HCPCS: 12052; 99284; A4649; 12013